=== PATIENT | female | born 1950 | race Caucasian/White ===

== ENCOUNTER 2017-12-05 10:18 | Inpatient (IN) ==
[2017-12-05] MEDS ORDERED: HEPARIN DRIP 25,000 UNITS/500 ML PREMIX IV SCH (10:30)
[2017-12-05] MEDS: SODIUM CHLORIDE 0.9% 1,000 ML IV SCH (13:13)
[2017-12-05 13:25] LABS: Basophils % 0.4 % (0.0-0.8); Eosinophils # 0.1 10*3/uL (0.0-0.87); Eosinophils % 1.7 % (0.00-10.9); Hematocrit 35.9 VOL% (35.7-47.0); Immature Granulocytes % 0.2 %; Immature Granulocytes Absolute 0.01 #; Lymphocytes # 1.6 10*3/uL (1.4-4.0); Mean Corpuscular HGB Conc 33.4 GM/DL (32-36); Mean Corpuscular Hemoglobin 34 PG (27-34); Mean Corpuscular Volume 100.3 FL (87-102); Mean Platelet Volume 9.4 FL (9.6-12.0); Monocytes # 0.4 10*3/uL (0.11-0.8); Monocytes % 7.3 % (1.7-12.7); Neutrophils # 3.2 10*3/uL (1.4-7.4); Neutrophils % 60.4 % (38.7-73.9); Platelet Count 180 T/CUMM (130-400); Red Blood Count 3.58 MC/CUMM (3.8-5.5); Red Cell Distribution Width 11.9 % (9.3-17.3); White Blood Count 5.2 T/CUMM (4-12)
[2017-12-05] MEDS ORDERED: NITROGLYCERIN 0.4 MG/HR PATCH TRANSDERM SCH (13:30)
[2017-12-05 13:48] LABS: Albumin 3.6 G/DL (3.4-5.0); Bilirubin,Total 0.5 MG/DL (0.2-1.0); Calcium 9.3 MG/DL (8.5-10.1); Osmolality,Calculated 277.4 MOS/KG (273-304); Potassium 3.4 MMOL/L (3.5-5.1); Total Protein 6.9 G/DL (6.4-8.3)
[2017-12-05] MEDS: ASPIRIN CHEW 81 MG TABLET PO SCH (14:27)
[2017-12-05] MEDS: HEPARIN DRIP 25,000 UNITS/500 ML PREMIX IV SCH (18:19)
[2017-12-06] MEDS ORDERED: NITROGLYCERIN SL 0.4 MG TABLET SL PRN (06:14)
[2017-12-06] MEDS: LEVOTHYROXINE 75 MCG TABLET PO SCH (06:40)
[2017-12-06] MEDS: cloNIDine 0.1 MG TABLET PO SCH ×2 (09:03→17:14)
[2017-12-06] MEDS: hydroCHLOROthiazide 25 MG TABLET PO SCH (09:03)
[2017-12-06] MEDS: MULTIVITAMIN (CENTRUM) TABLET PO SCH (09:03)
[2017-12-06] MEDS: CHOLECALCIFEROL 5,000 UNIT TABLET PO SCH (09:03)
[2017-12-06] MEDS: ISOSORBIDE MONONITRATE 30 MG TABLET PO SCH (09:03)
[2017-12-06] MEDS: ASPIRIN CHEW 81 MG TABLET PO SCH (09:03)
[2017-12-06] MEDS: QUINAPRIL 20 MG TABLET PO SCH (09:03)
[2017-12-06] MEDS: SODIUM CHLORIDE 0.9% 1,000 ML IV SCH (11:27)
[2017-12-06] MEDS: HEPARIN DRIP 25,000 UNITS/500 ML PREMIX IV SCH (17:11)
[2017-12-06] MEDS: ATORVASTATIN 40 MG TABLET PO SCH (21:19)
[2017-12-07] MEDS: cloNIDine 0.1 MG TABLET PO SCH ×3 (00:18→16:11)
[2017-12-07] MEDS: LEVOTHYROXINE 75 MCG TABLET PO SCH (05:50)
[2017-12-07 06:11] LABS: Allen Test Positive; Pt O2 Delivery Device Room Air
[2017-12-07 06:12] LABS: ABG Base Excess 5.4 MMOL/L (-2.5-2.5); ABG HCO3 28.8 MMOL/L (20-26); ABG Oxygen Saturation 97.8 % (95-100); ABG PCO2 37.5 MM HG (35-48); ABG PH 7.503 (7.35-7.45); ABG PO2 109.7 MM HG (80-95); ABG TCO2 29.9 MMOL/L (23-27)
[2017-12-07] MEDS: CHOLECALCIFEROL 5,000 UNIT TABLET PO SCH (09:42)
[2017-12-07] MEDS: hydroCHLOROthiazide 25 MG TABLET PO SCH (09:42)
[2017-12-07] MEDS: ISOSORBIDE MONONITRATE 30 MG TABLET PO SCH (09:42)
[2017-12-07] MEDS: MULTIVITAMIN (CENTRUM) TABLET PO SCH (09:42)
[2017-12-07] MEDS: ASPIRIN CHEW 81 MG TABLET PO SCH (09:43)
[2017-12-07] MEDS: QUINAPRIL 20 MG TABLET PO SCH (09:48)
[2017-12-07] MEDS: HEPARIN DRIP 25,000 UNITS/500 ML PREMIX IV SCH ×2 (14:36→22:34)
[2017-12-07] MEDS: ATORVASTATIN 40 MG TABLET PO SCH (21:05)
[2017-12-08] MEDS: cloNIDine 0.1 MG TABLET PO SCH ×3 (01:45→16:23)
[2017-12-08] MEDS: LEVOTHYROXINE 75 MCG TABLET PO SCH (05:51)
[2017-12-08] MEDS: hydroCHLOROthiazide 25 MG TABLET PO SCH (08:42)
[2017-12-08] MEDS: CHOLECALCIFEROL 5,000 UNIT TABLET PO SCH (08:43)
[2017-12-08] MEDS: ISOSORBIDE MONONITRATE 30 MG TABLET PO SCH (08:43)
[2017-12-08] MEDS: QUINAPRIL 20 MG TABLET PO SCH (08:43)
[2017-12-08] MEDS: MULTIVITAMIN (CENTRUM) TABLET PO SCH (08:43)
[2017-12-08] MEDS: ASPIRIN CHEW 81 MG TABLET PO SCH (08:43)
[2017-12-08] MEDS ORDERED: ENOXAPARIN 60 MG/0.6 ML SYRINGE SUBCUT ONE (12:00)
[2017-12-08] MEDS: CHLORHEXIDINE 4% SOLN 118 ML BOTTLE TOP SCH ×2 (14:25→21:28)
[2017-12-08] MEDS: CHLORHEXIDINE 0.12% ORAL RINSE 60 ML BOTTLE SWISH/SPIT SCH (21:29)
[2017-12-08] MEDS: ATORVASTATIN 40 MG TABLET PO SCH (21:29)
[2017-12-09] MEDS: cloNIDine 0.1 MG TABLET PO SCH ×3 (01:40→09:02)
[2017-12-09] MEDS: CHLORHEXIDINE 4% SOLN 118 ML BOTTLE TOP SCH ×2 (04:40→09:02)
[2017-12-09] MEDS ORDERED: PAPAVERINE 60 MG/2 ML VIAL ONE (04:53)
[2017-12-09] MEDS ORDERED: VANCOMYCIN 1,000 MG VIAL ONE (04:54)
[2017-12-09] MEDS ORDERED: PANTOPRAZOLE 40 MG TABLET PO ONE (05:00)
[2017-12-09] MEDS ORDERED: DIAZEPAM 5 MG TABLET PO ONE (05:00)
[2017-12-09] MEDS ORDERED: CEFUROXIME INJ 1,500 MG in SYRINGE 1 EACH IV ONE (05:00)
[2017-12-09] MEDS: LEVOTHYROXINE 75 MCG TABLET PO SCH (06:31)
[2017-12-09] MEDS: QUINAPRIL 20 MG TABLET PO SCH ×2 (06:38→09:02)
[2017-12-09] MEDS ORDERED: SODIUM BICARBONATE 50 MEQ/50 ML SYRINGE IV ONE ×2 (07:36→12:23)
[2017-12-09] MEDS ORDERED: NITROPRUSSIDE 50 MG/2 ML VIAL ONE (07:36)
[2017-12-09] MEDS ORDERED: PHENYLEPHRINE DRIP 40 MG/250 ML PREMIX IV ONE (07:36)
[2017-12-09] MEDS ORDERED: LIDOCAINE 100 MG/5 ML SYRINGE ONE (07:37)
[2017-12-09] MEDS ORDERED: CALCIUM CHLORIDE 1,000 MG/10 ML SYRINGE IV ONE (07:37)
[2017-12-09] MEDS ORDERED: EPINEPHrine 1 MG/10 ML SYRINGE ONE (07:37)
[2017-12-09] MEDS ORDERED: ALBUMIN 5% 12.5 GM/250 ML VIAL IV ONE (07:37)
[2017-12-09] MEDS ORDERED: POTASSIUM CHLORIDE RIDER 100 ML IV ONE (07:37)
[2017-12-09] MEDS ORDERED: ATROPINE 1 MG/10 ML SYRINGE ONE (07:38)
[2017-12-09 08:09] LABS: ABG HCO3 27.9 MMOL/L (20-26); ABG Oxygen Saturation 99.3 % (95-100); ABG PCO2 49.1 MM HG (35-48); ABG PH 7.372 (7.35-7.45); ABG TCO2 29.4 MMOL/L (23-27); Glucose Heart Surgery 114 MG/DL (74-106); Hemoglobin Heart Surgery 11.9 G/DL (12.0-16.0); Ionized Calcium Arterial 1.05 MMOL/L (1.21-1.46); PCO2 Patient Temp Arterial 49.1 MMHG; PH Patient Temp Arterial 7.372; Patient Temperature 37 CELCIUS; Potassium Heart/CVR 4.6 MMOL/L (3.5-5.1); Sodium Heart/CVR 138 MMOL/L (135-145)
[2017-12-09 08:43] LABS: Apearance,Urine CLEAR (Clear); Bilirubin,Urine Negative (Negative); Blood, Urine Negative (Negative); Glucose,Urine (UA) Negative (Negative); Ketones,Urine Negative (Negative); Nitrite,Urine Negative (Negative); Protein,Urine Negative; RBC,Urine <1 /HPF (0-4); Squamous Epithelial Cell,Urine Occasional /HPF (0-10); Urine Color Yellow (Yellow); Urine Specific Gravity 1.013 (1.001-1.035); Urine Urobilinogen < 2.0 EU/DL (0.2-1.0); WBC,Urine <1 /HPF (0-6)
[2017-12-09] MEDS: MULTIVITAMIN (CENTRUM) TABLET PO SCH (09:02)
[2017-12-09] MEDS: ASPIRIN CHEW 81 MG TABLET PO SCH (09:02)
[2017-12-09] MEDS: hydroCHLOROthiazide 25 MG TABLET PO SCH (09:03)
[2017-12-09] MEDS: CHLORHEXIDINE 0.12% ORAL RINSE 60 ML BOTTLE SWISH/SPIT SCH ×2 (09:03→20:07)
[2017-12-09] MEDS: CHOLECALCIFEROL 5,000 UNIT TABLET PO SCH (09:03)
[2017-12-09] MEDS: ISOSORBIDE MONONITRATE 30 MG TABLET PO SCH (09:03)
[2017-12-09 09:59] LABS: Hematocrit Heart Surgery 23.2 PERCENT (37-47); Hemoglobin Heart Surgery 7.4 G/DL (12.0-16.0); PCO2 Patient Temp Venous 34.1 MM HG; PH Patient Temp Venous 7.509; PO2 Patient Temp Venous 37.1 MM HG; Potassium Heart/CVR 5.2 MMOL/L (3.5-5.1); VBG Base Excess 4.2 MEQ/L (0-4); VBG HCO3 27.9 MEQ/L (24-28); VBG Oxygen Saturation 79.4 %; VBG PCO2 37.6 MMHG (41-51); VBG PH 7.479; VBG PO2 42.6 MMHG (17-40)
[2017-12-09 10:29] LABS: Potassium Heart/CVR 4.5 MMOL/L (3.5-5.1); VBG Base Excess 3.7 MEQ/L (0-4); VBG HCO3 27.5 MEQ/L (24-28); VBG Oxygen Saturation 77.2 %; VBG PCO2 36.8 MMHG (41-51); VBG PH 7.478; VBG PO2 41.4 MMHG (17-40)
[2017-12-09 10:30] LABS: Hematocrit Heart Surgery 25.9 PERCENT (37-47); Hemoglobin Heart Surgery 8.3 G/DL (12.0-16.0); PCO2 Patient Temp Venous 31.9 MM HG; PH Patient Temp Venous 7.524; PO2 Patient Temp Venous 33.6 MM HG
[2017-12-09 11:08] LABS: Hemoglobin Heart Surgery 8.9 G/DL (12.0-16.0); PCO2 Patient Temp Venous 29.7 MM HG; PH Patient Temp Venous 7.568; PO2 Patient Temp Venous 36.2 MM HG; Potassium Heart/CVR 4.8 MMOL/L (3.5-5.1); VBG Base Excess 4.3 MEQ/L (0-4); VBG HCO3 26.9 MEQ/L (24-28); VBG Oxygen Saturation 75.5 %; VBG PCO2 32.4 MMHG (41-51); VBG PH 7.537; VBG PO2 41.7 MMHG (17-40)
[2017-12-09 12:14] LABS: ABG Base Excess 2.5 MMOL/L (-2.5-2.5); ABG HCO3 26.7 MMOL/L (20-26); ABG Oxygen Saturation 99.6 % (95-100); ABG PCO2 37.6 MM HG (35-48); ABG PH 7.455 (7.35-7.45); ABG TCO2 24.6 MMOL/L (23-27); Glucose Heart Surgery 209 MG/DL (74-106); Hematocrit Heart Surgery 24.6 PERCENT (37-47); Hemoglobin Heart Surgery 7.9 G/DL (12.0-16.0); Ionized Calcium Arterial 1.15 MMOL/L (1.21-1.46); PCO2 Patient Temp Arterial 35.8 MMHG; Patient Temperature 36 CELCIUS; Potassium Heart/CVR 3.4 MMOL/L (3.5-5.1); Sodium Heart/CVR 136 MMOL/L (135-145)
[2017-12-09] MEDS ORDERED: DEXTROSE 5% KCL 20 MEQ 20 MEQ/1,000 ML BAG IV ONE (12:22)
[2017-12-09] MEDS ORDERED: ALBUMIN 25% 25 GM/100 ML VIAL IV ONE (12:23)
[2017-12-09] MEDS ORDERED: PROTAMINE SULFATE 250 MG/25 ML VIAL IV ONE (12:23)
[2017-12-09] MEDS ORDERED: MANNITOL 12.5 GM/50 ML VIAL IV ONE (12:23)
[2017-12-09] MEDS ORDERED: methylPREDNISolone SOD SUC 1,000 MG/8 ML VIAL ONE (12:23)
[2017-12-09] MEDS ORDERED: MAGNESIUM SULFATE 10 GM/20 ML VIAL IV ONE (12:23)
[2017-12-09] MEDS ORDERED: HEPARIN 10,000 UNIT/10 ML VIAL ONE (12:23)
[2017-12-09] MEDS ORDERED: FUROSEMIDE 20 MG/2 ML VIAL ONE (12:24)
[2017-12-09] MEDS ORDERED: PHENYLEPHRINE 1 MG/10 ML SYRINGE IV ONE (12:24)
[2017-12-09] MEDS ORDERED: PROTAMINE SULFATE 50 MG/5 ML VIAL IV ONE ×2 (13:15→14:50)
[2017-12-09] MEDS ORDERED: PHENYLEPHRINE DRIP 40 MG/250 ML PREMIX IV PRN (13:17)
[2017-12-09] MEDS ORDERED: MAGNESIUM SULF RIDER 4 GM in PREMIX 1 EACH IV PRN (13:17)
[2017-12-09] MEDS ORDERED: INSULIN REGULAR 100 UNIT/ML IV PRN (13:17)
[2017-12-09] MEDS ORDERED: MORPHINE 10 MG/1 ML VIAL IV PRN (13:17)
[2017-12-09] MEDS ORDERED: VECURONIUM 10 MG VIAL IV PRN ×2 (13:17)
[2017-12-09] MEDS ORDERED: ALBUMIN 5% 12.5 GM in PREMIX 1 EACH IV PRN (13:17)
[2017-12-09] MEDS ORDERED: DEXTROSE 50% 25 GM/50 ML VIAL IV PRN ×2 (13:17)
[2017-12-09] MEDS ORDERED: LACTATED RINGERS 250 ML IV PRN (13:17)
[2017-12-09] MEDS ORDERED: MIDAZOLAM 2 MG/2 ML VIAL IV PRN (13:17)
[2017-12-09] MEDS ORDERED: ACETAMINOPHEN 650 MG SUPP RECTAL PRN (13:17)
[2017-12-09] MEDS ORDERED: ONDANSETRON 4 MG/2 ML VIAL IV PRN (13:17)
[2017-12-09] MEDS ORDERED: MORPHINE 4 MG/1 ML VIAL IV PRN (13:17)
[2017-12-09] MEDS ORDERED: MIDAZOLAM 10 MG/2 ML VIAL IV PRN (13:17)
[2017-12-09] MEDS ORDERED: NITROPRUSSIDE 100 MG in DEXTROSE 5% 250 ML IV PRN (13:17)
[2017-12-09] MEDS ORDERED: MAGNESIUM SULF RIDER 2 GM in PREMIX 1 EACH IV PRN (13:17)
[2017-12-09] MEDS ORDERED: INSULIN REGULAR 100 UNIT/ML IV ONE (13:17)
[2017-12-09] MEDS ORDERED: CALCIUM CHLORIDE 1,000 MG/10 ML SYRINGE IV PRN (13:17)
[2017-12-09 13:21] LABS: ABG Base Excess 2.8 MMOL/L (-2.5-2.5); ABG HCO3 26.9 MMOL/L (20-26); ABG Oxygen Saturation 98.8 % (95-100); ABG PCO2 43.4 MM HG (35-48); ABG PH 7.413 (7.35-7.45); ABG TCO2 25.5 MMOL/L (23-27); Glucose Heart Surgery 187 MG/DL (74-106); Hematocrit Heart Surgery 28.1 PERCENT (37-47); Hemoglobin Heart Surgery 9.1 G/DL (12.0-16.0); Potassium Heart/CVR 3.8 MMOL/L (3.5-5.1)
[2017-12-09 13:23] LABS: Basophils % 0.1 % (0.0-0.8); Eosinophils % 0.2 % (0.00-10.9); Hematocrit 25.4 VOL% (35.7-47.0); Immature Granulocytes % 1.4 %; Immature Granulocytes Absolute 0.12 #; Lymphocytes # 0.9 10*3/uL (1.4-4.0); Lymphocytes % 10.5 % (21.3-54.2); Mean Corpuscular Hemoglobin 34 PG (27-34); Mean Corpuscular Volume 96.6 FL (87-102); Mean Platelet Volume 10.6 FL (9.6-12.0); Monocytes # 0.4 10*3/uL (0.11-0.8); Monocytes % 4.8 % (1.7-12.7); Red Cell Distribution Width 12.2 % (9.3-17.3)
[2017-12-09] MEDS ORDERED: PHENYLEPHRINE DRIP 20 MG/250 ML PREMIX IV ONE (13:24)
[2017-12-09] MEDS ORDERED: CALCIUM CHLORIDE 1,000 MG/10 ML VIAL IV ONE (13:24)
[2017-12-09] MEDS ORDERED: SEVOFLURANE 1 UNIT/15 MINUTE INH ONE (13:24)
[2017-12-09] MEDS ORDERED: SUFentanil 250 MCG/5 ML AMP ONE (13:24)
[2017-12-09] MEDS ORDERED: HEPARIN/NACL 0.9% 2 UNITS/ML 500 ML IV ONE (13:24)
[2017-12-09] MEDS ORDERED: MIDAZOLAM 10 MG/2 ML VIAL ONE (13:25)
[2017-12-09] MEDS ORDERED: SUFentanil 50 MCG/ML AMP ONE (13:25)
[2017-12-09] MEDS ORDERED: ATROPINE 0.4 MG/1 ML VIAL ONE (13:26)
[2017-12-09] MEDS ORDERED: PHENYLEPHRINE 10 MG/1 ML VIAL IV ONE (13:26)
[2017-12-09] MEDS ORDERED: VECURONIUM 10 MG VIAL IV ONE (13:26)
[2017-12-09] MEDS ORDERED: MINERAL OIL/PETROLATUM OPH OINT 3.5 GM TUBE ONE (13:26)
[2017-12-09] MEDS ORDERED: ePHEDrine 50 MG/ML AMP ONE (13:26)
[2017-12-09] MEDS ORDERED: SODIUM CHLORIDE 0.9% 250 ML IV ONE (13:27)
[2017-12-09] MEDS ORDERED: LACTATED RINGERS 1,000 ML IV ONE (13:27)
[2017-12-09] MEDS ORDERED: AMINOCAPROIC ACID 5,000 MG/20 ML VIAL IV ONE (13:27)
[2017-12-09] MEDS ORDERED: SODIUM CHLORIDE 0.9% 2,000 ML IV ONE (13:27)
[2017-12-09] MEDS ORDERED: ETOMIDATE 40 MG/20 ML VIAL IV ONE (13:27)
[2017-12-09] MEDS ORDERED: GLYCOPYRROLATE 0.4 MG/2 ML VIAL ONE (13:27)
[2017-12-09] MEDS ORDERED: SODIUM CHLORIDE 0.45% 1,000 ML IV SCH ×2 (13:30)
[2017-12-09] MEDS ORDERED: INSULIN REGULAR DRIP 100 ML IV SCH (13:30)
[2017-12-09 13:31] LABS: Hemoglobin 8.9 GM/DL (12.0-16.0); Red Blood Count 2.63 MC/CUMM (3.8-5.5); White Blood Count 8.4 T/CUMM (4-12)
[2017-12-09 13:32] LABS: Platelet Count 202 T/CUMM (130-400)
[2017-12-09] MEDS: POTASSIUM CHLORIDE RIDER 20 MEQ in PREMIX 1 EACH IV PRN ×4 (13:37→21:23)
[2017-12-09] MEDS ORDERED: LACTATED RINGERS 1,000 ML IV PRN (13:44)
[2017-12-09 13:46] LABS: INR 1.1; PT Patient Result 11.2 SECS; Partial Thromboplastin Time 28.9 SECS (0-40)
[2017-12-09 13:54] LABS: Albumin 3.5 G/DL (3.4-5.0); Calcium 9.2 MG/DL (8.5-10.1); Osmolality,Calculated 287.1 MOS/KG (273-304); Potassium 4.1 MMOL/L (3.5-5.1); Total Protein 6.2 G/DL (6.4-8.3)
[2017-12-09 14:30] LABS: CKMB % 6.6 %
[2017-12-09 14:33] LABS: Troponin I 8.31 NG/ML (0.00-0.045)
[2017-12-09] MEDS: POTASSIUM CHLORIDE RIDER 10 MEQ in PREMIX 1 EACH IV PRN ×2 (14:47→21:57)
[2017-12-09] MEDS: KETOROLAC 30 MG/1 ML VIAL IV SCH ×2 (14:48→18:38)
[2017-12-09 15:12] LABS: ABG Base Excess 0.2 MMOL/L (-2.5-2.5); ABG HCO3 24.6 MMOL/L (20-26); ABG Oxygen Saturation 98.1 % (95-100); ABG PCO2 45.8 MM HG (35-48); ABG TCO2 23.9 MMOL/L (23-27); Glucose Heart Surgery 166 MG/DL (74-106); Hematocrit Heart Surgery 28.2 PERCENT (37-47); Hemoglobin Heart Surgery 9.1 G/DL (12.0-16.0); Potassium Heart/CVR 4.1 MMOL/L (3.5-5.1)
[2017-12-09 17:03] LABS: ABG Base Excess -0.4 MMOL/L (-2.5-2.5); ABG HCO3 24.1 MMOL/L (20-26); ABG Oxygen Saturation 96.3 % (95-100); ABG PCO2 46.7 MM HG (35-48); ABG PH 7.347 (7.35-7.45); ABG TCO2 23.2 MMOL/L (23-27); Glucose Heart Surgery 166 MG/DL (74-106); Hematocrit Heart Surgery 33.5 PERCENT (37-47); Hemoglobin Heart Surgery 10.9 G/DL (12.0-16.0); Potassium Heart/CVR 4.2 MMOL/L (3.5-5.1)
[2017-12-09] MEDS ORDERED: FUROSEMIDE 40 MG/4 ML VIAL IV ONE (19:50)
[2017-12-09] MEDS: CEFUROXIME INJ 1,500 MG in SYRINGE 1 EACH IV SCH (20:17)
[2017-12-09 21:17] LABS: ABG Base Excess -1.1 MMOL/L (-2.5-2.5); ABG HCO3 23.4 MMOL/L (20-26); ABG Oxygen Saturation 95.4 % (95-100); ABG PCO2 44.4 MM HG (35-48); ABG PH 7.352 (7.35-7.45); ABG PO2 79.2 MM HG (80-95); ABG TCO2 22.2 MMOL/L (23-27); Glucose Heart Surgery 139 MG/DL (74-106); Hematocrit Heart Surgery 34.7 PERCENT (37-47); Hemoglobin Heart Surgery 11.3 G/DL (12.0-16.0); Potassium Heart/CVR 3.9 MMOL/L (3.5-5.1)
[2017-12-09 21:41] LABS: CKMB % 8.4 %
[2017-12-09 21:47] LABS: Troponin I 6.75 NG/ML (0.00-0.045)
[2017-12-10] MEDS: KETOROLAC 30 MG/1 ML VIAL IV SCH ×2 (01:00→06:41)
[2017-12-10 03:35] LABS: Basophils % 0.1 % (0.0-0.8); Hematocrit 31.9 VOL% (35.7-47.0); Hemoglobin 10.8 GM/DL (12.0-16.0); Immature Granulocytes % 0.4 %; Immature Granulocytes Absolute 0.05 #; Lymphocytes # 0.6 10*3/uL (1.4-4.0); Lymphocytes % 4.7 % (21.3-54.2); Mean Corpuscular HGB Conc 33.9 GM/DL (32-36); Mean Corpuscular Hemoglobin 32 PG (27-34); Mean Corpuscular Volume 95.8 FL (87-102); Mean Platelet Volume 10.7 FL (9.6-12.0); Monocytes # 0.6 10*3/uL (0.11-0.8); Monocytes % 4.8 % (1.7-12.7); Neutrophils # 10.7 10*3/uL (1.4-7.4); Platelet Count 161 T/CUMM (130-400); Red Blood Count 3.33 MC/CUMM (3.8-5.5); Red Cell Distribution Width 15.1 % (9.3-17.3); White Blood Count 11.9 T/CUMM (4-12)
[2017-12-10 03:36] LABS: ABG HCO3 24.4 MMOL/L (20-26); ABG Oxygen Saturation 96.4 % (95-100); ABG PCO2 45.6 MM HG (35-48); ABG PH 7.359 (7.35-7.45); ABG PO2 89.3 MM HG (80-95); ABG TCO2 23.2 MMOL/L (23-27); Glucose Heart Surgery 127 MG/DL (74-106); Hematocrit Heart Surgery 34.1 PERCENT (37-47); Potassium Heart/CVR 4.6 MMOL/L (3.5-5.1)
[2017-12-10 04:04] LABS: CKMB % 8.7 %
[2017-12-10 04:26] LABS: Troponin I 8.93 NG/ML (0.00-0.045)
[2017-12-10 04:44] LABS: Albumin 3.6 G/DL (3.4-5.0); Bilirubin,Direct 0.18 MG/DL (0.0-0.20); Bilirubin,Total 0.5 MG/DL (0.2-1.0); Calcium 8.4 MG/DL (8.5-10.1); Potassium 4.7 MMOL/L (3.5-5.1); Total Protein 6.8 G/DL (6.4-8.3)
[2017-12-10 04:45] LABS: Lymphocytes 9 % (20-55); Metamyelocytes 1 %; Platelet Estimate Adequate; Polychromasia Few; Segmented Neutrophils 89 % (50-85); Total Cells Counted 100
[2017-12-10 05:56] LABS: ABG Base Excess 0.5 MMOL/L (-2.5-2.5); ABG HCO3 23.8 MMOL/L (20-26); ABG Oxygen Saturation 97.9 % (95-100); ABG PCO2 33.7 MM HG (35-48); ABG PH 7.467 (7.35-7.45); ABG PO2 113.9 MM HG (80-95); ABG TCO2 24.8 MMOL/L (23-27); Glucose Heart Surgery 132 MG/DL (74-106); Hemoglobin Heart Surgery 11.8 G/DL (12.0-16.0); Potassium Heart/CVR 4.7 MMOL/L (3.5-5.1)
[2017-12-10] MEDS ORDERED: FUROSEMIDE 40 MG/4 ML VIAL IV ONE (06:38)
[2017-12-10] MEDS ORDERED: INSULIN REGULAR 100 UNIT/ML SUBCUT SCH (08:00)
[2017-12-10] MEDS: CHLORHEXIDINE 0.12% ORAL RINSE 60 ML BOTTLE SWISH/SPIT SCH ×2 (08:30→21:15)
[2017-12-10] MEDS: CEFUROXIME INJ 1,500 MG in SYRINGE 1 EACH IV SCH (08:32)
[2017-12-10] MEDS ORDERED: MAGNESIUM SULF RIDER 2 GM in PREMIX 1 EACH IV PRN (09:43)
[2017-12-10] MEDS ORDERED: GLUCAGON 1 MG VIAL IM PRN ×2 (09:43)
[2017-12-10] MEDS ORDERED: ONDANSETRON 4 MG/2 ML VIAL IV PRN (09:43)
[2017-12-10] MEDS ORDERED: ZALEPLON 5 MG CAPSULE PO PRN (09:43)
[2017-12-10] MEDS ORDERED: ACETAMINOPHEN 325 MG TABLET PO PRN (09:43)
[2017-12-10] MEDS ORDERED: ALUMINUM/MAGNES/SIMETH MAX STR 30 ML UDCUP PO PRN (09:43)
[2017-12-10] MEDS ORDERED: MAGNESIUM SULF RIDER 4 GM in PREMIX 1 EACH IV PRN (09:43)
[2017-12-10] MEDS ORDERED: MAGNESIUM HYDROXIDE SUSP 30 ML UDCUP PO PRN (09:43)
[2017-12-10] MEDS ORDERED: POTASSIUM CHLORIDE 20 MEQ TABLET PO PRN (09:43)
[2017-12-10] MEDS ORDERED: DEXTROSE 50% 25 GM/50 ML VIAL IV PRN ×2 (09:43)
[2017-12-10] MEDS ORDERED: SODIUM CHLOR 0.45% KCL 20 MEQ 20 MEQ/1,000 ML BAG IV SCH (10:00)
[2017-12-10] MEDS ORDERED: KETOROLAC 15 MG/1 ML VIAL IV SCH (10:00)
[2017-12-10] MEDS: methylPREDNISolone SOD SUC 40 MG/1 ML VIAL IV SCH ×2 (10:33→17:32)
[2017-12-10] MEDS: MULTIVITAMIN (CENTRUM) TABLET PO SCH (10:36)
[2017-12-10] MEDS: ASPIRIN EC 325 MG TABLET PO SCH (10:36)
[2017-12-10] MEDS: ISOSORBIDE MONONITRATE 30 MG TABLET PO SCH (10:36)
[2017-12-10] MEDS: QUINAPRIL 20 MG TABLET PO SCH (10:36)
[2017-12-10] MEDS: ATORVASTATIN 40 MG TABLET PO SCH (10:37)
[2017-12-10] MEDS: hydroCHLOROthiazide 25 MG TABLET PO SCH (12:36)
[2017-12-10] MEDS: KETOROLAC 15 MG/1 ML VIAL IV SCH ×2 (12:36→17:31)
[2017-12-10] MEDS: INSULIN REGULAR 100 UNIT/ML SUBCUT SCH ×2 (17:30→21:14)
[2017-12-11] MEDS: INSULIN REGULAR 100 UNIT/ML SUBCUT SCH ×6 (00:41→20:16)
[2017-12-11] MEDS: methylPREDNISolone SOD SUC 40 MG/1 ML VIAL IV SCH ×3 (01:01→17:13)
[2017-12-11 03:58] LABS: Basophils % 0.1 % (0.0-0.8); Hematocrit 29.5 VOL% (35.7-47.0); Hemoglobin 9.7 GM/DL (12.0-16.0); Immature Granulocytes % 0.9 %; Immature Granulocytes Absolute 0.13 #; Lymphocytes # 0.8 10*3/uL (1.4-4.0); Lymphocytes % 5.1 % (21.3-54.2); Mean Corpuscular HGB Conc 32.9 GM/DL (32-36); Mean Corpuscular Hemoglobin 32 PG (27-34); Mean Platelet Volume 11.2 FL (9.6-12.0); Monocytes # 0.9 10*3/uL (0.11-0.8); Monocytes % 5.8 % (1.7-12.7); Neutrophils % 88.1 % (38.7-73.9); Platelet Count 153 T/CUMM (130-400); Red Blood Count 3.01 MC/CUMM (3.8-5.5); Red Cell Distribution Width 14.9 % (9.3-17.3); White Blood Count 14.8 T/CUMM (4-12)
[2017-12-11 04:26] LABS: Alanine Aminotransferase 47 U/L (13-56); Albumin 3.2 G/DL (3.4-5.0); Alkaline Phosphatase 78 U/L (45-117); Aspartate Amino Transferase 90 U/L (0-37); Bilirubin,Indirect 0.3 MG/DL (0.0-1.0); Bilirubin,Total < 0.39 MG/DL (0.2-1.0); Blood Urea Nitrogen 25 MG/DL (7-18); CKMB % 4.6 %; Calcium 8.3 MG/DL (8.5-10.1); Glucose 204 MG/DL (74-106); Osmolality,Calculated 284.7 MOS/KG (273-304); Potassium 4.8 MMOL/L (3.5-5.1); Sodium 138 MMOL/L (136-145); Total Protein 6.4 G/DL (6.4-8.3)
[2017-12-11] MEDS ORDERED: FUROSEMIDE 40 MG/4 ML VIAL IV ONE (06:00)
[2017-12-11] MEDS: LEVOTHYROXINE 75 MCG TABLET PO SCH (06:13)
[2017-12-11] MEDS: PANTOPRAZOLE 40 MG TABLET PO SCH (08:31)
[2017-12-11] MEDS: ISOSORBIDE MONONITRATE 30 MG TABLET PO SCH (08:31)
[2017-12-11] MEDS: CHOLECALCIFEROL 5,000 UNIT TABLET PO SCH (08:31)
[2017-12-11] MEDS: QUINAPRIL 20 MG TABLET PO SCH (08:31)
[2017-12-11] MEDS: DOCUSATE SODIUM 100 MG CAPSULE PO SCH (08:31)
[2017-12-11] MEDS: FERROUS SULFATE 325 MG TABLET PO SCH (08:31)
[2017-12-11] MEDS: ASPIRIN EC 325 MG TABLET PO SCH (08:31)
[2017-12-11] MEDS: MULTIVITAMIN (CENTRUM) TABLET PO SCH (08:31)
[2017-12-11] MEDS: ATORVASTATIN 40 MG TABLET PO SCH (08:31)
[2017-12-11] MEDS: hydroCHLOROthiazide 25 MG TABLET PO SCH (08:31)
[2017-12-11] MEDS: CHLORHEXIDINE 0.12% ORAL RINSE 60 ML BOTTLE SWISH/SPIT SCH ×2 (08:32→20:17)
[2017-12-11] MEDS ORDERED: ASPIRIN EC 325 MG TABLET PO SCH (09:00)
[2017-12-11] MEDS: oxyCODONE/ACETAMINOPHEN 5-325 MG TABLET PO PRN (09:29)
[2017-12-12] MEDS: methylPREDNISolone SOD SUC 40 MG/1 ML VIAL IV SCH ×3 (01:04→17:22)
[2017-12-12] MEDS: INSULIN REGULAR 100 UNIT/ML SUBCUT SCH ×6 (01:04→21:25)
[2017-12-12 05:11] LABS: Basophils % 0.1 % (0.0-0.8); Hematocrit 30.3 VOL% (35.7-47.0); Hemoglobin 9.9 GM/DL (12.0-16.0); Immature Granulocytes % 1.3 %; Immature Granulocytes Absolute 0.18 #; Lymphocytes # 1.1 10*3/uL (1.4-4.0); Lymphocytes % 7.7 % (21.3-54.2); Mean Corpuscular HGB Conc 32.7 GM/DL (32-36); Mean Corpuscular Hemoglobin 32 PG (27-34); Mean Corpuscular Volume 98.4 FL (87-102); Monocytes # 0.8 10*3/uL (0.11-0.8); Monocytes % 5.5 % (1.7-12.7); Neutrophils # 11.6 10*3/uL (1.4-7.4); Neutrophils % 85.4 % (38.7-73.9); Platelet Count 163 T/CUMM (130-400); Red Blood Count 3.08 MC/CUMM (3.8-5.5); Red Cell Distribution Width 14.5 % (9.3-17.3); White Blood Count 13.6 T/CUMM (4-12)
[2017-12-12 05:36] LABS: Albumin 3.3 G/DL (3.4-5.0); Bilirubin,Direct 0.11 MG/DL (0.0-0.20); Bilirubin,Indirect 0.3 MG/DL (0.0-1.0); Bilirubin,Total 0.4 MG/DL (0.2-1.0); CKMB % 2.7 %; Calcium 8.3 MG/DL (8.5-10.1); Osmolality,Calculated 287.4 MOS/KG (273-304); Potassium 4.5 MMOL/L (3.5-5.1); Total Protein 6.7 G/DL (6.4-8.3)
[2017-12-12 05:38] LABS: Troponin I 4.98 NG/ML (0.00-0.045)
[2017-12-12] MEDS: LEVOTHYROXINE 75 MCG TABLET PO SCH (06:07)
[2017-12-12] MEDS ORDERED: FUROSEMIDE 40 MG/4 ML VIAL IV ONE (08:00)
[2017-12-12] MEDS: CHOLECALCIFEROL 5,000 UNIT TABLET PO SCH (08:26)
[2017-12-12] MEDS: ISOSORBIDE MONONITRATE 30 MG TABLET PO SCH (08:26)
[2017-12-12] MEDS: MULTIVITAMIN (CENTRUM) TABLET PO SCH (08:26)
[2017-12-12] MEDS: hydroCHLOROthiazide 25 MG TABLET PO SCH (08:26)
[2017-12-12] MEDS: FERROUS SULFATE 325 MG TABLET PO SCH (08:26)
[2017-12-12] MEDS: PANTOPRAZOLE 40 MG TABLET PO SCH (08:26)
[2017-12-12] MEDS: QUINAPRIL 20 MG TABLET PO SCH (08:26)
[2017-12-12] MEDS: ASPIRIN EC 325 MG TABLET PO SCH (08:27)
[2017-12-12] MEDS: DOCUSATE SODIUM 100 MG CAPSULE PO SCH (08:27)
[2017-12-12] MEDS: ATORVASTATIN 40 MG TABLET PO SCH (08:27)
[2017-12-12] MEDS: CHLORHEXIDINE 0.12% ORAL RINSE 60 ML BOTTLE SWISH/SPIT SCH ×2 (08:28→21:25)
[2017-12-12] MEDS ORDERED: METOPROLOL TARTRATE 5 MG/5 ML VIAL IV ONE (10:29)
[2017-12-12] MEDS: oxyCODONE/ACETAMINOPHEN 5-325 MG TABLET PO PRN (11:31)
[2017-12-12] MEDS: CARVEDILOL 3.125 MG TABLET PO SCH ×2 (12:25→17:22)
[2017-12-12] MEDS: AMIODARONE 200 MG TABLET PO SCH ×2 (12:25→21:24)
[2017-12-13] MEDS: methylPREDNISolone SOD SUC 40 MG/1 ML VIAL IV SCH (02:38)
[2017-12-13] MEDS: LEVOTHYROXINE 75 MCG TABLET PO SCH (06:20)
[2017-12-13] MEDS: ATORVASTATIN 40 MG TABLET PO SCH (09:17)
[2017-12-13] MEDS: PANTOPRAZOLE 40 MG TABLET PO SCH (09:17)
[2017-12-13] MEDS: hydroCHLOROthiazide 25 MG TABLET PO SCH (09:17)
[2017-12-13] MEDS: DOCUSATE SODIUM 100 MG CAPSULE PO SCH (09:17)
[2017-12-13] MEDS: QUINAPRIL 20 MG TABLET PO SCH (09:17)
[2017-12-13] MEDS: ASPIRIN EC 325 MG TABLET PO SCH (09:17)
[2017-12-13] MEDS: ISOSORBIDE MONONITRATE 30 MG TABLET PO SCH (09:17)
[2017-12-13] MEDS: MULTIVITAMIN (CENTRUM) TABLET PO SCH (09:18)
[2017-12-13] MEDS: INSULIN REGULAR 100 UNIT/ML SUBCUT SCH ×4 (09:18→21:32)
[2017-12-13] MEDS: AMIODARONE 200 MG TABLET PO SCH ×2 (09:18→21:32)
[2017-12-13] MEDS: FERROUS SULFATE 325 MG TABLET PO SCH (09:18)
[2017-12-13] MEDS: CHOLECALCIFEROL 5,000 UNIT TABLET PO SCH (09:18)
[2017-12-13] MEDS: CARVEDILOL 3.125 MG TABLET PO SCH ×2 (09:18→16:32)
[2017-12-13] MEDS: CHLORHEXIDINE 0.12% ORAL RINSE 60 ML BOTTLE SWISH/SPIT SCH ×2 (09:18→21:32)
[2017-12-14 05:22] LABS: Basophils # 0.1 10*3/uL (0.0-0.2); Basophils % 0.4 % (0.0-0.8); Eosinophils % 0.3 % (0.00-10.9); Hematocrit 31.7 VOL% (35.7-47.0); Hemoglobin 10.5 GM/DL (12.0-16.0); Immature Granulocytes % 4.8 %; Immature Granulocytes Absolute 0.61 #; Lymphocytes # 3.3 10*3/uL (1.4-4.0); Lymphocytes % 26.1 % (21.3-54.2); Mean Corpuscular HGB Conc 33.1 GM/DL (32-36); Mean Corpuscular Hemoglobin 32 PG (27-34); Mean Corpuscular Volume 96.4 FL (87-102); Monocytes # 0.9 10*3/uL (0.11-0.8); Monocytes % 7.4 % (1.7-12.7); NRBC # 0.02 10*3/uL; Neutrophils # 7.7 10*3/uL (1.4-7.4); Platelet Count 222 T/CUMM (130-400); Red Blood Count 3.29 MC/CUMM (3.8-5.5); Red Cell Distribution Width 14.1 % (9.3-17.3); White Blood Count 12.7 T/CUMM (4-12)
[2017-12-14 05:58] LABS: Alanine Aminotransferase 50 U/L (13-56); Albumin 3.2 G/DL (3.4-5.0); Alkaline Phosphatase 86 U/L (45-117); Aspartate Amino Transferase 33 U/L (0-37); Bilirubin,Indirect 0.8 MG/DL (0.0-1.0); Blood Urea Nitrogen 25 MG/DL (7-18); Calcium 8.7 MG/DL (8.5-10.1); Glucose 125 MG/DL (74-106); Osmolality,Calculated 283.4 MOS/KG (273-304); Potassium 3.7 MMOL/L (3.5-5.1); Sodium 140 MMOL/L (136-145); Total Protein 6.5 G/DL (6.4-8.3)
[2017-12-14 06:05] LABS: Band Neutrophils 6 % (0-10); Eosinophils 2 % (0-10); Lymphocytes 29 % (20-55); Platelet Estimate Normal; Segmented Neutrophils 50 % (50-85); Total Cells Counted 100
[2017-12-14] MEDS: LEVOTHYROXINE 75 MCG TABLET PO SCH (06:08)
[2017-12-14] MEDS: DOCUSATE SODIUM 100 MG CAPSULE PO SCH (08:08)
[2017-12-14] MEDS: AMIODARONE 200 MG TABLET PO SCH ×2 (08:08→21:00)
[2017-12-14] MEDS: CARVEDILOL 3.125 MG TABLET PO SCH ×2 (08:08→16:41)
[2017-12-14] MEDS: ASPIRIN EC 325 MG TABLET PO SCH (08:08)
[2017-12-14] MEDS: PANTOPRAZOLE 40 MG TABLET PO SCH (08:08)
[2017-12-14] MEDS: hydroCHLOROthiazide 25 MG TABLET PO SCH (08:08)
[2017-12-14] MEDS: FERROUS SULFATE 325 MG TABLET PO SCH (08:08)
[2017-12-14] MEDS: ISOSORBIDE MONONITRATE 30 MG TABLET PO SCH (08:08)
[2017-12-14] MEDS: QUINAPRIL 20 MG TABLET PO SCH (08:08)
[2017-12-14] MEDS: CHOLECALCIFEROL 5,000 UNIT TABLET PO SCH (08:08)
[2017-12-14] MEDS: CHLORHEXIDINE 0.12% ORAL RINSE 60 ML BOTTLE SWISH/SPIT SCH ×2 (08:09→21:00)
[2017-12-14] MEDS: ATORVASTATIN 40 MG TABLET PO SCH (08:09)
[2017-12-14] MEDS: INSULIN REGULAR 100 UNIT/ML SUBCUT SCH ×4 (08:12→21:00)
[2017-12-14] MEDS: MULTIVITAMIN (CENTRUM) TABLET PO SCH (09:14)
[2017-12-15] MEDS: LEVOTHYROXINE 75 MCG TABLET PO SCH (06:15)
[2017-12-15 06:45] LABS: Alanine Aminotransferase 43 U/L (13-56); Alkaline Phosphatase 90 U/L (45-117); Aspartate Amino Transferase 26 U/L (0-37); Bilirubin,Indirect 0.5 MG/DL (0.0-1.0); Blood Urea Nitrogen 18 MG/DL (7-18); Calcium 8.5 MG/DL (8.5-10.1); Glucose 134 MG/DL (74-106); Osmolality,Calculated 278.7 MOS/KG (273-304); Sodium 138 MMOL/L (136-145); Total Protein 6.2 G/DL (6.4-8.3)
[2017-12-15 08:06] VITALS: BP 125/82
[2017-12-15 08:15] LABS: Basophils # 0.1 10*3/uL (0.0-0.2); Basophils % 0.4 % (0.0-0.8); Eosinophils # 0.1 10*3/uL (0.0-0.87); Eosinophils % 1.1 % (0.00-10.9); Hematocrit 32.9 VOL% (35.7-47.0); Hemoglobin 11.2 GM/DL (12.0-16.0); Immature Granulocytes % 3.3 %; Immature Granulocytes Absolute 0.41 #; Lymphocytes # 2.4 10*3/uL (1.4-4.0); Lymphocytes % 19.8 % (21.3-54.2); Mean Corpuscular Hemoglobin 33 PG (27-34); Mean Corpuscular Volume 95.6 FL (87-102); Mean Platelet Volume 10.9 FL (9.6-12.0); Monocytes # 0.9 10*3/uL (0.11-0.8); Monocytes % 7.1 % (1.7-12.7); Neutrophils # 8.4 10*3/uL (1.4-7.4); Neutrophils % 68.3 % (38.7-73.9); Platelet Count 210 T/CUMM (130-400); Red Blood Count 3.44 MC/CUMM (3.8-5.5); Red Cell Distribution Width 13.9 % (9.3-17.3); White Blood Count 12.3 T/CUMM (4-12)
[2017-12-15] MEDS: CHOLECALCIFEROL 5,000 UNIT TABLET PO SCH (08:29)
[2017-12-15] MEDS: QUINAPRIL 20 MG TABLET PO SCH (08:29)
[2017-12-15] MEDS: DOCUSATE SODIUM 100 MG CAPSULE PO SCH (08:29)
[2017-12-15] MEDS: CARVEDILOL 3.125 MG TABLET PO SCH (08:29)
[2017-12-15] MEDS: hydroCHLOROthiazide 25 MG TABLET PO SCH (08:29)
[2017-12-15] MEDS: PANTOPRAZOLE 40 MG TABLET PO SCH (08:29)
[2017-12-15] MEDS: ATORVASTATIN 40 MG TABLET PO SCH (08:29)
[2017-12-15] MEDS: ISOSORBIDE MONONITRATE 30 MG TABLET PO SCH (08:29)
[2017-12-15] MEDS: MULTIVITAMIN (CENTRUM) TABLET PO SCH (08:29)
[2017-12-15] MEDS: AMIODARONE 200 MG TABLET PO SCH (08:29)
[2017-12-15] MEDS: ASPIRIN EC 325 MG TABLET PO SCH (08:29)
[2017-12-15] MEDS: FERROUS SULFATE 325 MG TABLET PO SCH (08:29)
[2017-12-15] MEDS: CHLORHEXIDINE 0.12% ORAL RINSE 60 ML BOTTLE SWISH/SPIT SCH (08:31)
[2017-12-15] MEDS: INSULIN REGULAR 100 UNIT/ML SUBCUT SCH (08:31)
== END 2017-12-15 11:19 | disposition home health service (06) | DRG 236 ==
LOC: N.ICU 12:24 → N.TELES 12-06 15:08 → N.CVR 12-09 08:24 → N.TELES 12-10 13:21